=== PATIENT | male | born 1970 | race Caucasian/White ===

== ENCOUNTER 2019-02-26 11:38 | Emergency (ER) | payer MEDICAID ==
[~2019-02-26] VITALS: Ht 170.2 cm; Wt 70.0 kg
[~2019-02-26 11:38] MED LIST: RISP2TAB3 PO
[2019-02-26 11:44] VITALS: Ht 170.2 cm; Wt 70.0 kg
[2019-02-26] MEDS ORDERED: LORAZEPAM 1 MG TAB PO ONE (12:00)
[2019-02-26 19:42] VITALS: BP 110/70; PULSE 84; RESP 18
[2019-02-26] MEDS ORDERED: RISPERIDONE 1 MG TAB PO ONE (22:30)
== END 2019-02-27 00:05 | disposition home or self-care (01) ==
LOC: E/R 11:38
DX: F29 Unspecified psychosis not due to a substance or known physiological condition (principal); F19.10 Other psychoactive substance abuse, uncomplicated
CPT/HCPCS: 36415; 80053; 80307; 81001; 85025; Z7502; Z7610; 99283